=== PATIENT | female | born 1940 | race Caucasian/White ===

== ENCOUNTER 2017-12-18 06:38 | Inpatient (IN) | payer MEDICARE, OTHER ==
[2017-12-18] MEDS ORDERED: FENTAnyl 50 MCG/ML VIAL (08:55)
[2017-12-18] MEDS ORDERED: MIDAZOLAM 1 MG/ML 2 ML INJ (08:55)
[2017-12-18] MEDS ORDERED: NITROGLYCERIN (IC) 100 MCG/ML INJ (09:07)
[2017-12-18] MEDS ORDERED: IOHEXOL 350MG/ML 50 ML BTL (09:09)
[2017-12-18] MEDS ORDERED: IODIXANOL LOCM 100 ML BTL ×2 (09:09→09:51)
[2017-12-18] MEDS ORDERED: BIVALIRUDIN 250MG /NS 50 ML 50 ML IVPB (09:15)
[2017-12-18] MEDS ORDERED: TICAGRELOR 90 MG TABLET (09:35)
[2017-12-18] MEDS ORDERED: ASPIRIN 325 MG TAB (09:46)
[2017-12-18] MEDS: ASPIRIN (EC) 81 MG TAB PO (10:00)
[2017-12-18] MEDS ORDERED: LORAZEPAM 1 MG TAB PO (10:00)
[2017-12-18] MEDS ORDERED: ZOLPIDEM 5 MG TAB PO (10:00)
[2017-12-18] MEDS ORDERED: DULOXETINE HCL 20 MG PO (10:00)
[2017-12-18] MEDS ORDERED: AL HYDROX/MG HYDROX/SIMETH 30 ML CUP PO (10:00)
[2017-12-18] MEDS ORDERED: DIAZEPAM 2 MG TAB PO (10:00)
[2017-12-18] MEDS ORDERED: NON-FORMULARY/PATIENT OWN MED (Hydralazine Hcl* 50 MG) PO (10:00)
[2017-12-18] MEDS ORDERED: ONDANSETRON 4 MG TAB PO (10:00)
[2017-12-18] MEDS: TICAGRELOR 90 MG TABLET PO ×3 (10:00→21:39)
[2017-12-18] MEDS: FAMOTIDINE 20 MG TAB PO ×2 (11:27→21:33)
[2017-12-18] MEDS: DOCUSATE SODIUM 100 MG CAP PO ×2 (11:27→21:32)
[2017-12-18] MEDS: GABAPENTIN 100 MG CAP PO ×2 (11:27→21:32)
[2017-12-18] MEDS: AMLODIPINE 10 MG TAB PO (11:28)
[2017-12-18] MEDS: SOD CHLORIDE 0.9% 1,000 ML IV (11:28)
[2017-12-18] MEDS: METOPROLOL (XL) 25 MG TAB PO (11:29)
[2017-12-18] MEDS: morphine LIQ (10 MG/5 ML) CUP PO (12:32)
[2017-12-18] MEDS: DULOXETINE 20 MG CAP DR PO (13:06)
[2017-12-18] MEDS: ISOSORBIDE DINITRATE 20 MG TAB PO ×2 (13:06→21:33)
[2017-12-18] MEDS: ONDANSETRON 4 MG INJ IV (13:28)
[2017-12-18] MEDS ORDERED: TICAGRELOR 90 MG TABLET PO (21:00)
[2017-12-18] MEDS: EZETIMIBE 10 MG TAB PO (21:33)
[2017-12-19 05:32] LABS: ADD MAN DIFF? NO
[2017-12-19 05:43] LABS: BASOPHILS % 0.4 % (0.0-2.0); EOSINOPHILS # 0.1 10^3/ul (0.0-0.5); EOSINOPHILS % 1.1 % (0.0-7.0); HEMATOCRIT 31.5 % (37.0-47.0); HEMOGLOBIN 10.2 g/dl (12.0-16.0); IMMATURE GRANS #M 0.01 10^3/ul; IMMATURE GRANS % (M) 0.2 %; LYMPHOCYTES # 1.1 10^3/ul (0.8-2.9); LYMPHOCYTES % 19.7 % (15.0-51.0); MEAN CORPUSCULAR HEMOGLOBIN 29.9 pg (29.0-33.0); MEAN CORPUSCULAR HGB CONC 32.4 g/dl (32.0-37.0); MEAN CORPUSCULAR VOLUME 92.4 fl (82.0-101.0); MEAN PLATELET VOLUME 9.8 fl (7.4-10.4); MONOCYTE # 0.8 10^3/ul (0.3-0.9); MONOCYTES % 14.2 % (0.0-11.0); NEUTROPHIL # 3.5 10^3/ul (1.6-7.5); NEUTROPHILS % 64.4 % (39.0-77.0); PLATELET COUNT 190 10^3/UL (140-415); RED BLOOD COUNT 3.41 10^6/ul (4.20-5.40); RED CELL DISTRIBUTION WIDTH 12.4 % (11.5-14.5)
[2017-12-19 05:43] LABS: WHITE BLOOD COUNT 5.5 10^3/ul (4.8-10.8)
[2017-12-19 06:01] LABS: INR 1.02; PROTIME 13.5 Sec (11.9-14.9); PT RATIO 1.1
[2017-12-19 06:05] LABS: ALANINE AMINOTRANSFERASE 34 IU/L (13-69); ALKALINE PHOSPHATASE 44 IU/L (42-121); ASPARTATE AMINO TRANSFERASE 19 IU/L (15-46); BILIRUBIN,INDIRECT 1.9 mg/dl (0-1.1); BILIRUBIN,TOTAL 1.9 mg/dl (0.2-1.3); TOTAL PROTEIN 5.4 g/dl (6.1-8.1)
[2017-12-19 06:09] LABS: ANION GAP 10 (8-16); BLOOD UREA NITROGEN 15 mg/dl (7-20); CALCIUM 8.9 mg/dl (8.4-10.2); CARBON DIOXIDE 27 mmol/L (21-31); CHLORIDE 106 mmol/L (97-110); CREATININE 0.54 mg/dl (0.44-1.00); GLUCOSE 92 mg/dl (70-220); SODIUM 139 mmol/L (135-144)
[2017-12-19] MEDS: NITROGLYCERIN (SL) 0.4 MG TAB SL ×3 (07:17→07:31)
[2017-12-19] MEDS: morphine LIQ (10 MG/5 ML) CUP PO (07:38)
[2017-12-19] MEDS: ASPIRIN (EC) 81 MG TAB PO (07:43)
[2017-12-19] MEDS: TICAGRELOR 90 MG TABLET PO ×2 (07:45→23:35)
[2017-12-19] MEDS: ONDANSETRON 4 MG INJ IV (07:47)
[2017-12-19] MEDS: AMLODIPINE 10 MG TAB PO (09:00)
[2017-12-19] MEDS: METOPROLOL (XL) 25 MG TAB PO (09:00)
[2017-12-19] MEDS: GABAPENTIN 100 MG CAP PO ×2 (09:12→22:47)
[2017-12-19] MEDS: DOCUSATE SODIUM 100 MG CAP PO ×2 (09:12→20:15)
[2017-12-19] MEDS: FAMOTIDINE 20 MG TAB PO ×2 (09:12→22:47)
[2017-12-19] MEDS: ISOSORBIDE DINITRATE 20 MG TAB PO ×2 (09:12→22:47)
[2017-12-19] MEDS: DULOXETINE 20 MG CAP DR PO (09:12)
[2017-12-19] MEDS: ENOXAPARIN 40 MG/0.4 ML SYG SC (09:14)
[2017-12-19] MEDS: EZETIMIBE 10 MG TAB PO (22:47)
[2017-12-19] MEDS: ATORVASTATIN 40 MG TAB PO (22:47)
[2017-12-20 06:52] LABS: ADD MAN DIFF? NO
[2017-12-20 07:01] LABS: WHITE BLOOD COUNT 5.7 10^3/ul (4.8-10.8)
[2017-12-20 07:01] LABS: BASOPHILS % 0.5 % (0.0-2.0); EOSINOPHILS # 0.1 10^3/ul (0.0-0.5); EOSINOPHILS % 0.9 % (0.0-7.0); HEMATOCRIT 36.9 % (37.0-47.0); HEMOGLOBIN 11.6 g/dl (12.0-16.0); LYMPHOCYTES # 1.7 10^3/ul (0.8-2.9); MEAN CORPUSCULAR HEMOGLOBIN 29.6 pg (29.0-33.0); MEAN CORPUSCULAR HGB CONC 31.4 g/dl (32.0-37.0); MEAN CORPUSCULAR VOLUME 94.1 fl (82.0-101.0); MEAN PLATELET VOLUME 9.8 fl (7.4-10.4); MONOCYTE # 0.7 10^3/ul (0.3-0.9); MONOCYTES % 12.8 % (0.0-11.0); NEUTROPHIL # 3.2 10^3/ul (1.6-7.5); NEUTROPHILS % 56.4 % (39.0-77.0); PLATELET COUNT 247 10^3/UL (140-415); RED BLOOD COUNT 3.92 10^6/ul (4.20-5.40); RED CELL DISTRIBUTION WIDTH 12.7 % (11.5-14.5)
[2017-12-20 07:29] LABS: ALANINE AMINOTRANSFERASE 37 IU/L (13-69); ALBUMIN 3.8 g/dl (3.3-4.9); ALKALINE PHOSPHATASE 56 IU/L (42-121); ASPARTATE AMINO TRANSFERASE 22 IU/L (15-46); BILIRUBIN,INDIRECT 1.6 mg/dl (0-1.1); BILIRUBIN,TOTAL 1.6 mg/dl (0.2-1.3); TOTAL PROTEIN 6.6 g/dl (6.1-8.1)
[2017-12-20 07:39] LABS: ANION GAP 15 (8-16); BLOOD UREA NITROGEN 18 mg/dl (7-20); CALCIUM 9.5 mg/dl (8.4-10.2); CARBON DIOXIDE 26 mmol/L (21-31); CHLORIDE 104 mmol/L (97-110); CREATININE 0.56 mg/dl (0.44-1.00); GLUCOSE 116 mg/dl (70-220); PHOSPHORUS 3.4 mg/dl (2.5-4.9); SODIUM 141 mmol/L (135-144)
[2017-12-20] MEDS: ASPIRIN (EC) 81 MG TAB PO (08:51)
[2017-12-20] MEDS: DOCUSATE SODIUM 100 MG CAP PO (08:51)
[2017-12-20] MEDS: GABAPENTIN 100 MG CAP PO (08:51)
[2017-12-20] MEDS: DULOXETINE 20 MG CAP DR PO (08:51)
[2017-12-20] MEDS: METOPROLOL (XL) 25 MG TAB PO (08:52)
[2017-12-20] MEDS: ENOXAPARIN 40 MG/0.4 ML SYG SC (08:52)
[2017-12-20] MEDS: ISOSORBIDE DINITRATE 20 MG TAB PO (08:52)
[2017-12-20] MEDS: FAMOTIDINE 20 MG TAB PO (08:52)
[2017-12-20] MEDS: TICAGRELOR 90 MG TABLET PO (09:09)
== END 2017-12-20 13:30 | disposition home health service (06) | DRG 247 ==
LOC: CCL 06:38 → TEL 12-19 18:49 → SDS 06:38 → ICU 10:00 → CCL 09:44 → ICU 09:39
PROC: 027034Z Dilation of Coronary Artery, One Artery with Drug-eluting Intraluminal Device, Percutaneous Approach (ICD-10-PCS; principal; 2017-12-18 08:56)
PROC: 4A023N7 Measurement of Cardiac Sampling and Pressure, Left Heart, Percutaneous Approach (ICD-10-PCS; 2017-12-18 08:56)
PROC: B211YZZ Fluoroscopy of Multiple Coronary Arteries using Other Contrast (ICD-10-PCS; 2017-12-18 08:56)
PROC: B215YZZ Fluoroscopy of Left Heart using Other Contrast (ICD-10-PCS; 2017-12-18 08:56)
DX: I21.4 Non-ST elevation (NSTEMI) myocardial infarction (principal); I25.10 Atherosclerotic heart disease of native coronary artery without angina pectoris
CPT/HCPCS: 80048; 80076; 83735; 84100; 85025; 85610; 87081; 93005; 93458